=== PATIENT | female | born 1940 | race Caucasian/White ===

== ENCOUNTER 2016-03-16 14:24 | Emergency (ER) | payer MEDICARE ==
[2016-03-16 15:03] LABS: #Basophils 0.1 thou/uL (0.0-0.2); #Eosinphils 0.2 thou/uL (0.0-0.7); #Lymphocytes 1.7 thou/uL (1.20-3.40); #Monocytes 0.6 thou/uL (0.11-0.59); #Neutrophils 6.2 thou/uL (1.40-6.50); %Basophils 1.1 % (0.0-1.0); %Eosinophils 2.4 % (0.0-10.0); %Monocytes 6.8 % (0.0-10.0); Mean Platelet Volume 6.5 fL (7.4-10.4); White Blood Cell (WBC) Count 8.8 thou/uL (4.8-10.8)
[2016-03-16 15:19] LABS: ALT (SGPT) 11 U/L (0-55); AST (SGOT) 14 U/L (5-34); Alkaline Phosphatase 72 U/L (40-150); Anion Gap 13 mmol/L (10-20); BUN (Urea Nitrogen) 14 mg/dL (9.8-20.1); Bilirubin, Total 0.5 mg/dL (0.2-1.2); Calc. Creatinine Clearance 0 mL/min (70-130); Calcium 9.2 mg/dL (7.8-10.44); Carbon Dioxide 25 mmol/L (23-31); Chloride 108 mmol/L (98-107); Estimated GFR-MDRD 79; Protein, Total 6.8 g/dL (5.8-8.1)
[2016-03-16 15:26] LABS: Troponin I Less than 0.010 ng/mL (< 0.028)
[2016-03-16] MEDS ORDERED: Piperacillin/Tazobactam 3.375 GM VIAL ONE (16:48)
[2016-03-16] MEDS ORDERED: Enoxaparin Sodium 100 MG/ML SYRINGE ONE (16:48)
[2016-03-16] MEDS ORDERED: Sodium Chloride 0.9% 100 ML ONE (16:48)
--- NOTE | 2016-03-16 16:49 | RAD ---
CHEST TWO VIEWS 03/16/16 Comparison is made with the prior study dated 07/15/14. The heart size is unchanged and is within normal limits. There are no real congestive findings at th e moment. The right hilum is a little larger than it was before but this is probably positional. I d o not see any large lobar consolidations. There might be a little coarsening of the lung markings in the right base. Otherwise, the lungs are clear. There are no large effusions. IMPRESSION: Question of slight coarsening of right basilar markings which may or may not be significant. Exam ot herwise unremarkable. POS: HOME
[2016-03-16 17:28] LABS: Lactic Acid - Sepsis 1.3 mmol/L (0.5-2.2)
--- NOTE | 2016-03-16 17:47 | ERRECORD ---
[facility] EMERGENCY RECORD HPI SHORTNESS OF BREATH (15:32 DHAM) CHIEF COMPLAINT: Patient presents for evaluation of shortness of breath. HISTORIAN: History provided by patient. LOCATION: Unable to localize symptoms. QUALITY: "like I can't get a deep breath". SEVERITY: Current severity of pain rated as 0/10. TIME COURSE: Gradual onset of symptoms, 7, days priror to arrival, There has been no change in the patient's symptoms over time, worse at night when she lays down, are intermittent. ASSOCIATED WITH: Associated with chills, for 3 days, currently resolved, No associated cough, No associated chest pain, No associated diaphoresis, Associated with dyspnea on exertion, for 7 days, intermittent, Associated with fever, subjective, currently resolved, No associated hyperventilation, No associated increased inhaler use, No associated nausea, No associated palpitations, No associated paroxysmal nocturnal dyspnea, No associated peripheral edema, No associated pleuritic chest pain, No associated upper respiratory infection, No associated vomiting, No associated wheezing, denies uri symptoms but says she always has nasal congestion and runny nose. EXACERBATED BY: Patient's condition exacerbated by deep breaths, Patient's condition exacerbated by exercise, Patient's condition exacerbated by lying flat. RELIEVED BY: Patient's condition relieved by nothing, Patient's condition relieved by tried albuterol mdi "but I think it's empty.". RISK FACTORS: Coronary artery disease risk factors, include known coronary artery disease, include diabetes, include high cholesterol, include hypertension, Thoracic aortic dissection risk factors, include hypertension, Pulmonary embolism risk factors, not applicable to this patient. ROS (15:37 DHAM) CONSTITUTIONAL: Historian reports chills, denies fatigue, reports fever. Subjective fever of "3 days ago maybe", Historian denies night sweats. EYES: Historian denies eye pain, denies eye redness, denies eye discharge, denies itching, denies photophobia, denies tearing. ENT: Historian reports rhinorrhea, reports sore throat. for a long time. CARDIOVASCULAR: Historian denies chest pain, no radiation, Historian denies diaphoresis, reports dyspnea on exertion, denies edema, reports exercise intolerance. no jugular venous distention, Historian reports orthopnea, denies paroxysmal nocturnal dyspnea, denies syncope, denies palpitations. RESPIRATORY: Historian denies cough, reports shortness of breath, denies sputum, denies stridor, denies wheezing. GI: Historian denies abdominal pain, reports diarrhea, &a-1R&a+25V*p+0X*c1481W*c202B*c15G*c2P*p-0X&a-25V&a+1R Name: Marlene Lim : 1940 F75 MedRec: [id number] AcctNum: [id number] Prepared: Chio Mar 17, 2016 01:22 by Interface Page 1 of 5 pMD [facility] EMERGENCY RECORD denies nausea, denies vomiting. GENITOURINARY FEMALE: Historian denies dysuria, denies frequency, denies urgency. MUSCULOSKELETAL: Historian denies arthralgias, denies back pain, denies fall, denies injury. SKIN: Historian denies rash, denies skin changes. NEUROLOGIC: Historian denies confusion, denies dizziness, denies headache, denies mental status changes, denies paresthesias. ENDOCRINE: hypothyroid. HEMO/LYMPHATIC: Historian denies abnormal blood clotting, denies anemia, denies easy bruising. takes plavix. ALLERGIC/IMMUNOLOGIC: Historian denies frequent infections, denies hives. PSYCHIATRIC: Negative psychiatric review of systems. PAST MEDICAL HISTORY MEDICAL HISTORY: Notes: COPD, HI, HTN, "thyroid issue". (14:33 LGIB) FEMALE SURGICAL HISTORY: right lung, CABG X 4 vessels. (14:33 LGIB) PSYCHIATRIC HISTORY: No previous psychiatric history. (14:33 LGIB) SOCIAL HISTORY: Patient denies alcohol use, Patient denies drug use, Patient is a former tobacco user, smoked cigarettes, Patient quit smoking more than 10 years ago, Tobacco history notes: quit 20 years ago. (14:33 LGIB) NOTES: right lung had recurrent pneumothorax and she had blebs removed. (16:18 DHAM) KNOWN ALLERGIES No Known Drug Allergies CURRENT MEDICATIONS valsartan: TABLET : Strength - 80 mg : ORAL Patient Dose: 1 tab(s) Oral once a day. (15:48 LGIB) meTOPROLOL succinate: TABLET, EXTENDED RELEASE 24 HR : Strength - 25 mg : ORAL Patient Dose: 1 tab(s) Oral once a day. (15:50 LGIB) Plavix: TABLET : Strength - 75 mg : ORAL Patient Dose: 1 tab(s) Oral once a day. (15:50 LGIB) sertraline: TABLET : Strength - 50 mg : ORAL Patient Dose: 1 tab(s) Oral once a day. (15:50 LGIB) levothyroxine: TABLET : Strength - 25 mcg : ORAL Patient Dose: 1 tab(s) Oral once a day. (15:51 LGIB) VITAL SIGNS &a-1R&a+25V*p+0X*i2409T*c202B*c15G*c2P*p-0X&a-25V&a+1R Name: Marlene Lim : 1940 F75 MedRec: [id number] AcctNum: [id number] Prepared: Chio Mar 17, 2016 01:22 by Interface Page 2 of 5 pMD [facility] EMERGENCY RECORD VITAL SIGNS: BP: 156/81, Pulse: 73, Resp: 20 (Non-Labored), O2 sat: 95 on Room Air, Time: 03/16/2016 14:33. (14:33 LGIB) Temp: 98.2 (Oral), Pain: 0, Time: 03/16/2016 14:41. (14:41 LGIB) BP: 166/74, Pulse: 63, Resp: 20, Pain: 0, O2 sat: 95 on Room Air, Time: 03/16/2016 15:00. (15:00 LSMI) BP: 139/91, Pulse: 61, Resp: 18, Pain: 0, O2 sat: 99 on Room Air, Time: 03/16/2016 15:30. (15:30 LSMI) PHYSICAL EXAM (16:15 DHAM) CONSTITUTIONAL: Vital Signs Reviewed, Patient afebrile, Pulse normal, Blood pressure normal, Respiratory rate normal, Normal pulse oximetry, Patient appears non toxic, Patient appears pain free, Patient alert and oriented to person, place and time, Nursing notes reviewed. HEAD: Head exam included findings of head atraumatic, normocephalic. EYES: Eye exam included findings of eyelids normal to inspection, Pupils equally round and reactive to light, Extraocular muscles intact, Conjunctiva normal, Sclera normal, Eye exam included findings of anterior chamber clear. ENT: Ear exam normal, external ear normal, tympanic membranes normal, no foreign body, no drainage, no bleeding, hearing normal, Nose exam normal, no nasal deformity, no bleeding from nares, no bleeding from hypopharynx, no foreign body visualized, no septal hematoma, no septal necrosis, No turbinate mucosa discharge, Pharynx exam normal, not injected, no swelling, symmetrical, Uvula exam normal, midline, no edema, Tonsil exam normal, not enlarged, no exudates, Mouth exam normal, mucous membranes moist, no drooling, no lesions, no lacerations, no tongue elevation, teeth normal. NECK: Neck exam included findings of normal range of motion, Trachea midline, Thyroid normal, no meningeal signs, no jugular venous distention, no cervical adenopathy, no tenderness, no contusions, no ecchymosis, No HJR. RESPIRATORY CHEST: Respiratory exam included findings of no respiratory distress, Breath sounds with rare crackles in bilat bases but marked crackles over right middle lobe, No rhonchi, Breath sounds mildly diffusely diminished, Chest exam included findings of chest movement symmetrical. CARDIOVASCULAR: Cardiovascular exam included findings of heart rate regular rate and rhythm, Heart sounds with normal s1 and s2 but occasionally has a midsystolic click., she has a 2-3/6 late systolic Murmur best heard in the aortic area. I do not hear this in the mitral area. ABDOMEN FEMALE: Abdominal exam included findings of abdomen nontender, Bowel sounds normal, Liver normal, Spleen normal, no distension, no pulsatile masses, no peritoneal signs, no ventral hernia. BACK: Back exam normal. UPPER EXTREMITY: Upper extremity exam normal, Upper extremity exam included findings of inspection normal, no abrasions, no &a-1R&a+25V*p+0X*t6129P*c202B*c15G*c2P*p-0X&a-25V&a+1R Name: Marlene Lim : 1940 F75 MedRec: [id number] AcctNum: [id number] Prepared: Chio Mar 17, 2016 01:22 by Interface Page 3 of 5 pMD [facility] EMERGENCY RECORD contusions, no deformity, no lacerations, Range of motion normal, Motor strength normal, Sensation intact, Brachial pulse normal, Radial pulse normal. LOWER EXTREMITY: Lower extremity exam normal, Lower extremity exam included findings of inspection normal, no abrasions, no contusions, no deformity, no lacerations, Range of motion normal, Motor strength normal, Sensation intact, Pedal pulse normal, Lupe's negative, no edema, no calf tenderness. NEURO: Neuro exam findings include patient oriented to person, place and time, Speech normal, Gait normal, [place] coma scale 15, Memory normal, Cranial nerves intact, Deep tendon reflexes normal, no focal motor deficits, no focal sensory deficits. SKIN: Skin exam included findings of skin warm, dry, and normal in color, no rash. LYMPHATIC: Lymphatic exam normal, Lymphatic exam included findings of cervical nodes normal. PSYCHIATRIC: Psychiatric exam included findings of patient oriented to person place and time, Normal affect, Judgment normal, Insight normal, Remote memory normal, Recent memory normal, Concentration normal, No suicidal ideations, No homicidal ideations. EKG INTERPRETATION (15:06 DHAM) 12 LEAD EKG INTERPRETATION: 12 lead EKG interpreted by Emergency Department Physician at time of study, 12 lead EKG shows normal sinus rhythm, Rate (beats per minute): 62, with no ectopics, Interpretation: normal EKG, Conduction normal, ST segments normal, T waves normal, [place] normal, Clinical impression: Normal EKG. RADIOLOGYINTERPRETATION (15:08 DHAM) CHEST: Films of the chest show, lobar infiltrate, patchy infiltrate, to the right lower lobe, no pneumothorax, no hemothorax, no pleural effusion, no atelectasis, no cardiomegaly, no chronic obstructive pulmonary disease, normal mediastinum, no congestive heart failure. MEDICATION ADMINISTRATION SUMMARY Drug Name: Zosyn, Dose Ordered: 3.375 g, Route: IV Piggy Back, Status: Given, Time: 17:04 03/16/2016, Drug Name: Lovenox, Dose Ordered: 70 mg, Route: Subcutaneous, Status: Given, Time: 16:57 03/16/2016, Drug Name: DuoNeb, Dose Ordered: 3 mL, Route: Nebulize, Status: Given, Time: 15:44 03/16/2016, Detailed record available in Medication Service section. DOCTOR NOTES TEXT: Pt had no improvement with her shortness of breath with the Duoneb. (16:55 DHAM) IV has infiltrated with the contrast in the right anticubital fossa. I have discussed the ct chest with Dr. Castle who agrees that &a-1R&a+25V*p+0X*p0144I*c202B*c15G*c2P*p-0X&a-25V&a+1R Name: Marlene Lim : 1940 F75 MedRec: [id number] AcctNum: [id number] Prepared: MonMar 17, 2016 01:22 by Interface Page 4 of 5 pMD [facility] EMERGENCY RECORD she has infiltrate in the right base that is either an early pneumonia or atelectasis. Dr. Castle states that we should not repeat the contrasted ct chest at this time and maybe a VQ would be more reasonable. With pt's CAD, COPD, cxr findings, heart murmur, elevated BNP and d dimer, I will start some IVABX and Lovenox and transfer her to [facility]. I have drawn BC and lactic acid and started zosyn. I have discussed this with the pt and her good friend in detail and answered questions. They are in agreement. (16:46 DHAM) Pt discussed with Dr. Allen at 1710 at [facility] who accepts the pt in transfer via EMS. Pt appears stable for transfer. (17:07 DHAM) PROBLEM LIST No recorded problems DIAGNOSIS (16:54 DHAM) FINAL: PRIMARY: right lower lobe pneumonia, ADDITIONAL: elevated bnp, elevated d dimer, systolic heart murmur. PRESCRIPTION No recorded prescriptions DISPOSITION PATIENT: Disposition Type: Transfer, Disposition: Transfer to [facility]. (16:54 DHAM) Patient left the department. (17:26 LGIB) Benjamin: PARVIN=MD Cheryl, Jules LGIB=NORMAN Rebolledo, Vidhi LSMI=MIGUEL Borrero Leah &a-1R&a+25V*p+0X*w5717K*c202B*c15G*c2P*p-0X&a-25V&a+1R Name: Marlene Lim : 1940 F75 MedRec: [id number] AcctNum: [id number] Prepared: Chio Mar 17, 2016 01:22 by Interface Page 5 of 5 pMD MTDD
--- NOTE | 2016-03-16 17:52 | CT ---
CT ANGIO OF THE CHEST 03/16/16 Comparison is made with a 11/26/08 study. The patient was given a bolus of IV contrast. The technologist did not see any contrast on the image and actually scanned her twice quickly. In no case is contrast seen within the vascular system. Aft erwards it was found that the IV had infiltrated into the arm. Thus, I cannot comment on the presenc e or absence of pulmonary embolism. There is severe coronary arteriosclerosis. There is no mediastinal mass, adenopathy or pericardial e ffusion. A small hiatal hernia was noted. The lungs show COPD with some basilar bronchiectasis. There are areas of atelectasis and scarring. T here is a slight increase in markings in the right lower lobe which could be either atelectasis or a very early infiltrate. Some small peripheral bulla are seen in the lungs which were present previou sly. A small hiatal hernia was noted. Scans to the upper abdomen showed no gross acute findings. The last slice or two suggested a vague low density area in the anterior part of the medial right lobe of the liver. When one looks back on the 2008 study, it was present and is certainly no larger today . It may be a hemangioma. IMPRESSION: 1. IV infiltrated, so pulmonary embolism could not be ruled in or out. 2. Coronary arteriosclerosis, severe. 3. COPD with scattered areas of scarring and atelectasis. There is also bronchiectasis in the l ower lobes. 4. Slight increase in right basilar markings. Atelectasis versus early infiltrate. 5. Small hiatal hernia. POS: HOME
--- NOTE | 2016-03-16 17:54 | PICIS ---
[facility] EMERGENCY RECORD TRIAGE (14:32 LGIB) TRIAGE NOTES: PT WITH SOB FOR 1 WEEK, HX OF COPD. DENIES COUGH, DENIES FEVER. NAD, RR EVEN AND UNLABORED. (14:32 LGIB) PATIENT: NAME: Marlene Lim, AGE: 75, GENDER: female, : Sun 1940, TIME OF GREET: MonMar 16, 2016 14:25, PREFERRED LANGUAGE: Polish, ETHNICITY: Not or , ECODE BILLING MAP: [facility], SSN: [id number], Zip Code: [address], KG WEIGHT: 72.57, PHONE: , , , PERSON ID: [id number], PAYMENT: [employer], PCP: MD Odonnell Jacques. (14:32 LGIB) COMPLAINT: SOB. (14:32 LGIB) ADMISSION: URGENCY: 3 Urgent, ADMISSION SOURCE: Home, TRANSPORT: CAR, BED: ER -01. (14:32 LGIB) SIRS SCORING: Heart Rate 55-109 (0), Temp range 96.8-101.1 (0), respiratory rate 12-24 (0), Mental Status altered: no (0), Total SIRS Score 0. (14:33 LGIB) PROVIDERS: TRIAGE NURSE: Vidhi Rebolledo RN. (14:32 LGIB) PREVIOUS VISIT ALLERGIES: NKDA. (14:32 LGIB) NKDA. (14:33 LGIB) KNOWN ALLERGIES No Known Drug Allergies CURRENT MEDICATIONS valsartan: TABLET : Strength - 80 mg : ORAL Patient Dose: 1 tab(s) Oral once a day. (15:48 LGIB) meTOPROLOL succinate: TABLET, EXTENDED RELEASE 24 HR : Strength - 25 mg : ORAL Patient Dose: 1 tab(s) Oral once a day. (15:50 LGIB) Plavix: TABLET : Strength - 75 mg : ORAL Patient Dose: 1 tab(s) Oral once a day. (15:50 LGIB) sertraline: TABLET : Strength - 50 mg : ORAL Patient Dose: 1 tab(s) Oral once a day. (15:50 LGIB) levothyroxine: TABLET : Strength - 25 mcg : ORAL Patient Dose: 1 tab(s) Oral once a day. (15:51 LGIB) VITAL SIGNS VITAL SIGNS: BP: 156/81, Pulse: 73, Resp: 20 (Non-Labored), O2 sat: 95 on Room Air, Time: 03/16/2016 14:33. (14:33 LGIB) Temp: 98.2 (Oral), Pain: 0, Time: 03/16/2016 14:41. (14:41 LGIB) BP: 166/74, Pulse: 63, Resp: 20, Pain: 0, O2 sat: 95 on Room Air, Time: 03/16/2016 15:00. (15:00 LSMI) BP: 139/91, Pulse: 61, Resp: 18, Pain: 0, O2 sat: 99 on Room Air, Time: 03/16/2016 15:30. (15:30 LSMI) NURSING ASSESSMENT: FALL RISK (17:06 LGIB) &a-1R&a+25V*p+0X*x5824P*c202B*c15G*c2P*p-0X&a-25V&a+1R Name: Marlene Lim : 1940 F75 MedRec: [id number] AcctNum: [id number] Prepared: [place] Mar 17, 2016 01:22 by Interface Page 1 of 13 D [facility] EMERGENCY RECORD FALL RISK: Fall risk assessment findings include: no history of falls (0), No bed rest greater than 2 days (0), No use of level of consciousness altering agents with mentation or cognitive changes (0), No change in blood pressure (0), No sensory deficits (0), No impaired mobility (0), No neurologic diagnosis (0), No elimination problems (0), No confusion (0), Total score 0. NURSING ASSESSMENT: RESPIRATORY /CHEST (14:45 LGIB) CONSTITUTIONAL: Complex assessment performed, Patient arrives ambulatory, Gait steady, History obtained from patient, Patient appears comfortable, Patient cooperative, Patient alert, Oriented to person, place and time, Skin warm, Skin dry, Skin normal in color, Mucous membranes pink, Mucous membranes moist, Patient is well-groomed, Patient complains of SOB, HX OF COPD, PT STATES THAT FOR THE LAST WEEK SHE HAS BEEN FEELING MORE SHORT OF BREATH, ESPECIALLY WHEN SHE LIES FLAT AT NIGHT OR IS AMBULATORY FOR A PROLONGED TIME. PAIN: Patient rates pain as 0 out of 10. RESPIRATORY/CHEST: Breath sounds clear, Respiratory assessment findings include respiratory effort easy, Respirations regular, Conversing normally, Neck and chest exam findings include trachea midline, Chest expansion equal, Chest movement symmetrical, no signs of distress, no retractions noted, no cyanosis, no associated cough noted, no associated fever. SAFETY: Side rails up, Cart/Stretcher in lowest position, Family at bedside, Call light within reach, Hospital ID band on. NURSING PROCEDURE: TRIALS MANAGER (14:35 LGIB) TRIALS MANAGER: Patient placed on [employer], Patient placed on non-invasive blood pressure monitor, Patient placed on continuous pulse oximetry. NURSING PROCEDURE: COMMUNICATIONS (17:02 LSMI) COMMUNICATIONS: Notes: [facility] notified of need for transfer 1702 dr Allen accepts 1706 ad approval carlyle nixon 1706 ems called for transport 1706 ems arrived in [place] 1718 pt left [place] [facility] [place] [facility]. NURSING PROCEDURE: EKG CHART (14:49 LSMI) PATIENT IDENTIFIER: Patient actively involved in identification process, Patient's identity verified by patient stating name, Patient's identity verified by patient stating date, Patient's identity verified by hospital ID bracelet, Patient's identity verified by family member. EKG: EKG indicated for sob, 12 lead EKG performed on the left chest, done by cilff flores lvn, first EKG. FOLLOW-UP: After procedure, EKG for interpretation given to &a-1R&a+25V*p+0X*r6104Q*c202B*c15G*c2P*p-0X&a-25V&a+1R Name: Marlene Lim : 1940 F75 MedRec: [id number] AcctNum: [id number] Prepared: MonMar 17, 2016 01:22 by Interface Page 2 of 13 D [facility] EMERGENCY RECORD cheryl. SAFETY: Physician notified of above findings. NURSING PROCEDURE: IV PATIENT IDENITIFIER: Patient actively involved in identification process, Patient's identity verified by patient stating name, Patient's identity verified by patient stating date, Patient's identity verified by hospital ID bracelet, Patient's identity verified by family member. (16:56 LSMI) IV SITE 1: IV therapy indicated for CT SCAN, IV established, to the right antecubital, using a 20 gauge catheter, in one attempt, Saline lock established, Flushed with normal saline (mls): 10. (16:04 LGIB) IV therapy indicated for hydration, IV therapy indicated for medication administration, IV established, to the left forearm, using a 20 gauge catheter, in one attempt, Saline lock established, Flushed with normal saline (mls): 10, Labs drawn at time of placement, labeled in the presence of the patient and sent to lab, Blood cultures drawn at time of placement, labeled in the presence of the patient and sent to lab. (16:56 LSMI) FOLLOW-UP SITE 1: IV discontinued, due to patient being discharged, catheter intact, After removal, sterile dressing applied to IV site. (16:25 LSMI) NOTES: Notes: FIRST IV DISCONTINUED DUE TO INFILTRATION. 2X2 WITH TAPE APPLIED. (17:06 LGIB) NURSING PROCEDURE: NURSE NOTES (16:30 LGIB) NURSES NOTES: Notes: PER TERENCE, CT DOES NOT SHOW THAT THERE WAS CONTRAST. PATIENT'S LEFT ARM IS SWOLLEN ON RETURN FROM CT. WARM COMPRESSES PLACED TO ARM AND ARM ELEVATED TO REDUCE SWELLING. NURSING PROCEDURE: OXYGEN THERAPY (17:15 LGIB) OXYGEN THERAPY: Oxygen therapy indicated for desaturation, 2L oxygen given, via nasal cannula applied, Applied by NORMAN STEVENS. NURSING PROCEDURE: RESPIRATORY INTERVENTIONS (15:40 LSMI) PATIENT IDENTIFIER: Patient actively involved in identification process, Patient's identity verified by patient stating name, Patient's identity verified by patient stating date, Patient's identity verified by hospital ID bracelet, Patient's identity verified by family member. RESPIRATORY INTERVENTIONS: Pre-intervention breath sounds with rales, to the right middle lobe, to the left lower lobe, to the right lower lobe, Patient given ALBUTEROL with ATROVENT, Single dose nebulizer. NURSING PROCEDURE: TRANSFER TRANSFER: Diagnosis: rll pneumonia elevated d dimer, Accepting institution: [facility], Accepting physician: yovany, Referring physician: cheryl, Transported by urgent ambulance, accompanied by &a-1R&a+25V*p+0X*i3884K*c202B*c15G*c2P*p-0X&a-25V&a+1R Name: Marlene Lim : 1940 F75 MedRec: [id number] AcctNum: [id number] Prepared: [facility] Mar 17, 2016 01:22 by Interface Page 3 of 13 pMD [facility] EMERGENCY RECORD emergency medical services personnel, Summary of Care printed. (17:24 LSMI) Report called to receiving facility, NORMAN Rock, Provided opportunity to answer questions. (17:29 LGIB) EQUIPMENT WITH PATIENT: Equipment with patient at time of transfer [employer], Equipment with patient at time of transfer IV pump, Notes: o2 in place on transfer. (17:24 LSMI) NURSING PROCEDURE: TRANSPORT TO TESTS TRANSPORT TO TESTS: Transport indicated to facilitate diagnosis, Patient transported to x-ray, via wheelchair, Accompanied by x-ray aerial survey technician. (15:00 LGIB) Transport indicated to facilitate diagnosis, Patient transported to CT scan, via cart, Accompanied by x-ray aerial survey technician. (16:11 LGIB) FOLLOW-UP: After procedure, patient returned to emergency department. (15:06 LGIB) ORDER DETAILS Order Name: B type Natriuretic Peptide, Status: Active, Time: 14:42 03/16/2016, User: PARVIN, - Ordered for: MD Luna Darren, - Entered by: MD Luna Darren - MonMar 16, 2016 14:42, - Quantity: 1, Order Name: TRIALS MANAGER ED, Status: Done, Time: 14:44 03/16/2016, User: DELTA, - Ordered for: MD Luna Darren, - Entered by: MD Luna Darren - MonMar 16, 2016 14:42, - Quantity: 1, Order Name: Cardiac Profile w/CKMB & Troponin - I, Status: Active, Time: 14:42 03/16/2016, User: PARVIN, - Ordered for: MD Luna Darren, - Entered by: MD Luna Darren - MonMar 16, 2016 14:42, - Quantity: 1, Order Name: CBC with Differential, Status: Active, Time: 14:42 03/16/2016, User: PARVIN, - Ordered for: MD Luna Darren, - Entered by: MD Luna Darren - MonMar 16, 2016 14:42, - Quantity: 1, Order Name: Comprehensive Metabolic Panel, Status: Active, Time: 14:42 03/16/2016, User: PARVIN, - Ordered for: MD Luna Darren, - Entered by: MD Luna Darren - MonMar 16, 2016 14:42, - Quantity: 1, Order Name: CTA Angio Chest W WO Con(PE Protocol), Status: Active, Time: 15:42 03/16/2016, User: PARVIN, - Ordered for: MD Luna Darren, - Entered by: MD Luna Darren - MonMar 16, 2016 15:42, - Quantity: 1, Order Name: Culture, Blood, Status: Active, Time: 16:44 03/16/2016, &a-1R&a+25V*p+0X*g4164O*c202B*c15G*c2P*p-0X&a-25V&a+1R Name: Marlene Lim : 1940 F75 MedRec: [id number] AcctNum: [id number] Prepared: MonMar 17, 2016 01:22 by Interface Page 4 of 13 D [facility] EMERGENCY RECORD User: PARVIN, - Ordered for: MD Luna Darren, - Entered by: MD Luna Darren - MonMar 16, 2016 16:44, - Quantity: 1, Order Name: D-Dimer (Quantitative), Status: Active, Time: 14:42 03/16/2016, User: PARVIN, - Ordered for: MD Luna Darren, - Entered by: MD Luna Darren - MonMar 16, 2016 14:42, - Quantity: 1, Order Name: EKG 12 Lead in Emergency Room, Status: Active, Time: 14:42 03/16/2016, User: PARVIN, - Ordered for: MD Luna Darren, - Entered by: MD Luna Darren - MonMar 16, 2016 14:42, - Quantity: 1, Order Name: ERRT * Smal Vol Neb Initial Trmt, Status: Active, Time: 15:40 03/16/2016, User: PARVIN, - Ordered for: MD Luna Darren, - Entered by: MD Luna Darren - Wed Mar 16, 2016 15:40, - Quantity: 1, Order Name: ERRT Pulse Oximeter ER, Status: Active, Time: 14:42 03/16/2016, User: PARVIN, - Ordered for: MD Luna Darren, - Entered by: MD Luna Darren - Wed Mar 16, 2016 14:42, - Quantity: 1, Order Name: Lactic Acid with repeat, Status: Active, Time: 16:45 03/16/2016, User: PARVIN, - Ordered for: MD Luna Darren, - Entered by: MD Luna Darren - Wed Mar 16, 2016 16:45, - Quantity: 1, Order Name: SALINE LOCK, Status: Done, Time: 16:57 03/16/2016, User: DELTA, - Ordered for: MD Luna Darren, - Entered by: MD Luna Darren - Theo Mar 16, 2016 16:45, - Quantity: 1, Order Name: Urinalysis w/ Rflx Microscopic, Status: Active, Time: 14:42 03/16/2016, User: PARVIN, - Ordered for: MD Luna Darren, - Entered by: MD Luna Darren - Wed Mar 16, 2016 14:42, - Quantity: 1, Order Name: XR Chest Pa & Lat STANDARD, Status: Active, Time: 14:42 03/16/2016, User: PARVIN, - Ordered for: MD Luna Darren, - Entered by: MD Luna Darren - [facility] Mar 16, 2016 14:42, - Quantity: 1. MEDICATION ADMINISTRATION SUMMARY Drug Name: Zosyn, Dose Ordered: 3.375 g, Route: IV Piggy Back, Status: Given, Time: 17:04 03/16/2016, Drug Name: Lovenox, Dose Ordered: 70 mg, Route: Subcutaneous, Status: &a-1R&a+25V*p+0X*t0623P*c202B*c15G*c2P*p-0X&a-25V&a+1R Name: Marlene Lim : 1940 F75 MedRec: [id number] AcctNum: [id number] Prepared: [facility] Mar 17, 2016 01:22 by Interface Page 5 of 13 pMD [facility] EMERGENCY RECORD Given, Time: 16:57 03/16/2016, Drug Name: DuoNeb, Dose Ordered: 3 mL, Route: Nebulize, Status: Given, Time: 15:44 03/16/2016, Detailed record available in Medication Service section. MEDICATION SERVICE DuoNeb: Order: DuoNeb (ipratropium bromide/albuterol sulfate) - Dose: 3 mL : Nebulize Schedule: Now Ordered by: Jules Luna MD Entered by: Jules Luna MD MonMar 16, 2016 15:39 Documented as given by: Henna Flores LVN MonMar 16, 2016 15:44 Patient, Medication, Dose, Route and Time verified prior to administration. Site: Medication administered via Hand-held nebulizer, Correct patient, time, route, dose and medication confirmed prior to administration, Patient advised of actions and side-effects prior to administration, Allergies confirmed and medications reviewed prior to administration, Patient in position of comfort, Side rails up, Cart in lowest position, Family at bedside, Call light in reach. Lovenox: Order: Lovenox (enoxaparin sodium) - Dose: 70 mg : Subcutaneous Schedule: Now Ordered by: Jules Luna MD Entered by: Jules Luna MD MonMar 16, 2016 16:46 , Acknowledged by: Vidhi Rebolledo RN MonMar 16, 2016 16:47 Documented as given by: Vidhi Rebolledo RN MonMar 16, 2016 16:57 Patient, Medication, Dose, Route and Time verified prior to administration. Medication administered to left abdomen, Correct patient, time, route, dose and medication confirmed prior to administration, Patient advised of actions and side-effects prior to administration, Allergies confirmed and medications reviewed prior to administration, Advised not to ambulate without assistance, Patient in position of comfort, Side rails up, Cart in lowest position, Family at bedside. Zosyn: Order: Zosyn (piperacillin sodium/tazobactam sodium) - Dose: 3.375 g : IV Piggy Back Schedule: Now Ordered by: Jules Luna MD Entered by: Jules Luna MD MonMar 16, 2016 16:35 , Acknowledged by: Vidhi Rebolledo RN MonMar 16, 2016 16:47 Documented as given by: Vidhi Rebolledo RN MonMar 16, 2016 17:04 Patient, Medication, Dose, Route and Time verified prior to administration. IV SITE #1 IVPB or drip, initial infusion, IVPB mixed in: 100ml, Fluid: 0.9NS, via primary tubing, on an IV pump, at 200 ml/hr, Verified Blood Culture collection prior to Antibiotic administration, Connections checked prior to administration, Line traced prior to administration, Catheter placement confirmed via flush prior to administration, IV site without signs or symptoms of infiltration &a-1R&a+25V*p+0X*g9162B*c202B*c15G*c2P*p-0X&a-25V&a+1R Name: Marlene Lim : 1940 F75 MedRec: [id number] AcctNum: [id number] Prepared: MonMar 17, 2016 01:22 by Interface Page 6 of 13 pMD [facility] EMERGENCY RECORD during medication administration, No swelling during administration, No drainage during administration, IV flushed after administration, Correct patient, time, route, dose and medication confirmed prior to administration, Patient advised of actions and side-effects prior to administration, Allergies confirmed and medications reviewed prior to administration, Patient in position of comfort, Side rails up, Cart in lowest position, Family at bedside. : Follow Up : Response assessment performed, No signs or symptoms of allergic reaction noted, _IV SITE #1:_, Medication infusion continued upon transfer from emergency department, on MonMar 16, 2016 17:23, 20 minutes, ., Total amount infused: 75ML. (17:22 LGIB) HPI SHORTNESS OF BREATH (15:32 DHAM) CHIEF COMPLAINT: Patient presents for evaluation of shortness of breath. HISTORIAN: History provided by patient. LOCATION: Unable to localize symptoms. QUALITY: "like I can't get a deep breath". SEVERITY: Current severity of pain rated as 0/10. TIME COURSE: Gradual onset of symptoms, 7, days priror to arrival, There has been no change in the patient's symptoms over time, worse at night when she lays down, are intermittent. ASSOCIATED WITH: Associated with chills, for 3 days, currently resolved, No associated cough, No associated chest pain, No associated diaphoresis, Associated with dyspnea on exertion, for 7 days, intermittent, Associated with fever, subjective, currently resolved, No associated hyperventilation, No associated increased inhaler use, No associated nausea, No associated palpitations, No associated paroxysmal nocturnal dyspnea, No associated peripheral edema, No associated pleuritic chest pain, No associated upper respiratory infection, No associated vomiting, No associated wheezing, denies uri symptoms but says she always has nasal congestion and runny nose. EXACERBATED BY: Patient's condition exacerbated by deep breaths, Patient's condition exacerbated by exercise, Patient's condition exacerbated by lying flat. RELIEVED BY: Patient's condition relieved by nothing, Patient's condition relieved by tried albuterol mdi "but I think it's empty.". RISK FACTORS: Coronary artery disease risk factors, include known coronary artery disease, include diabetes, include high cholesterol, include hypertension, Thoracic aortic dissection risk factors, include hypertension, Pulmonary embolism risk factors, not applicable to this patient. ROS (15:37 [facility]) CONSTITUTIONAL: Historian reports chills, denies fatigue, reports fever. Subjective fever of "3 days ago &a-1R&a+25V*p+0X*y7451L*c202B*c15G*c2P*p-0X&a-25V&a+1R Name: Marlene Lim : 1940 F75 MedRec: [id number] AcctNum: [id number] Prepared: MonMar 17, 2016 01:22 by Interface Page 7 of 13 pMD [facility] EMERGENCY RECORD maybe", Historian denies night sweats. EYES: Historian denies eye pain, denies eye redness, denies eye discharge, denies itching, denies photophobia, denies tearing. ENT: Historian reports rhinorrhea, reports sore throat. for a long time. CARDIOVASCULAR: Historian denies chest pain, no radiation, Historian denies diaphoresis, reports dyspnea on exertion, denies edema, reports exercise intolerance. no jugular venous distention, Historian reports orthopnea, denies paroxysmal nocturnal dyspnea, denies syncope, denies palpitations. RESPIRATORY: Historian denies cough, reports shortness of breath, denies sputum, denies stridor, denies wheezing. GI: Historian denies abdominal pain, reports diarrhea, denies nausea, denies vomiting. GENITOURINARY FEMALE: Historian denies dysuria, denies frequency, denies urgency. MUSCULOSKELETAL: Historian denies arthralgias, denies back pain, denies fall, denies injury. SKIN: Historian denies rash, denies skin changes. NEUROLOGIC: Historian denies confusion, denies dizziness, denies headache, denies mental status changes, denies paresthesias. ENDOCRINE: hypothyroid. HEMO/LYMPHATIC: Historian denies abnormal blood clotting, denies anemia, denies easy bruising. takes plavix. ALLERGIC/IMMUNOLOGIC: Historian denies frequent infections, denies hives. PSYCHIATRIC: Negative psychiatric review of systems. PAST MEDICAL HISTORY MEDICAL HISTORY: Notes: COPD, NV, HTN, "thyroid issue". (14:33 LGIB) FEMALE SURGICAL HISTORY: right lung, CABG X 4 vessels. (14:33 LGIB) PSYCHIATRIC HISTORY: No previous psychiatric history. (14:33 LGIB) SOCIAL HISTORY: Patient denies alcohol use, Patient denies drug use, Patient is a former tobacco user, smoked cigarettes, Patient quit smoking more than 10 years ago, Tobacco history notes: quit 20 years ago. (14:33 LGIB) NOTES: right lung had recurrent pneumothorax and she had blebs removed. (16:18 DHAM) PHYSICAL EXAM (16:15 DHAM) CONSTITUTIONAL: Vital Signs Reviewed, Patient afebrile, Pulse normal, Blood pressure normal, Respiratory rate normal, Normal pulse oximetry, Patient appears non toxic, Patient appears pain free, Patient alert and oriented to person, place and time, Nursing notes reviewed. HEAD: Head exam included findings of head atraumatic, normocephalic. &a-1R&a+25V*p+0X*q5020O*c202B*c15G*c2P*p-0X&a-25V&a+1R Name: Marlene Lim : 1940 F75 MedRec: [id number] AcctNum: [id number] Prepared: MonMar 17, 2016 01:22 by Interface Page 8 of 13 pMD [facility] EMERGENCY RECORD EYES: Eye exam included findings of eyelids normal to inspection, Pupils equally round and reactive to light, Extraocular muscles intact, Conjunctiva normal, Sclera normal, Eye exam included findings of anterior chamber clear. ENT: Ear exam normal, external ear normal, tympanic membranes normal, no foreign body, no drainage, no bleeding, hearing normal, Nose exam normal, no nasal deformity, no bleeding from nares, no bleeding from hypopharynx, no foreign body visualized, no septal hematoma, no septal necrosis, No turbinate mucosa discharge, Pharynx exam normal, not injected, no swelling, symmetrical, Uvula exam normal, midline, no edema, Tonsil exam normal, not enlarged, no exudates, Mouth exam normal, mucous membranes moist, no drooling, no lesions, no lacerations, no tongue elevation, teeth normal. NECK: Neck exam included findings of normal range of motion, Trachea midline, Thyroid normal, no meningeal signs, no jugular venous distention, no cervical adenopathy, no tenderness, no contusions, no ecchymosis, No HJR. RESPIRATORY CHEST: Respiratory exam included findings of no respiratory distress, Breath sounds with rare crackles in bilat bases but marked crackles over right middle lobe, No rhonchi, Breath sounds mildly diffusely diminished, Chest exam included findings of chest movement symmetrical. CARDIOVASCULAR: Cardiovascular exam included findings of heart rate regular rate and rhythm, Heart sounds with normal s1 and s2 but occasionally has a midsystolic click., she has a 2-3/6 late systolic Murmur best heard in the aortic area. I do not hear this in the mitral area. ABDOMEN FEMALE: Abdominal exam included findings of abdomen nontender, Bowel sounds normal, Liver normal, Spleen normal, no distension, no pulsatile masses, no peritoneal signs, no ventral hernia. BACK: Back exam normal. UPPER EXTREMITY: Upper extremity exam normal, Upper extremity exam included findings of inspection normal, no abrasions, no contusions, no deformity, no lacerations, Range of motion normal, Motor strength normal, Sensation intact, Brachial pulse normal, Radial pulse normal. LOWER EXTREMITY: Lower extremity exam normal, Lower extremity exam included findings of inspection normal, no abrasions, no contusions, no deformity, no lacerations, Range of motion normal, Motor strength normal, Sensation intact, Pedal pulse normal, Lupe's negative, no edema, no calf tenderness. NEURO: Neuro exam findings include patient oriented to person, place and time, Speech normal, Gait normal, Dexter coma scale 15, Memory normal, Cranial nerves intact, Deep tendon reflexes normal, no focal motor deficits, no focal sensory deficits. SKIN: Skin exam included findings of skin warm, dry, and normal in color, no rash. LYMPHATIC: Lymphatic exam normal, Lymphatic exam included findings of cervical nodes normal. &a-1R&a+25V*p+0X*n7649L*c202B*c15G*c2P*p-0X&a-25V&a+1R Name: Marlene Lim : 1940 F75 MedRec: [id number] AcctNum: [id number] Prepared: MonMar 17, 2016 01:22 by Interface Page 9 of 13 pMD [facility] EMERGENCY RECORD PSYCHIATRIC: Psychiatric exam included findings of patient oriented to person place and time, Normal affect, Judgment normal, Insight normal, Remote memory normal, Recent memory normal, Concentration normal, No suicidal ideations, No homicidal ideations. LAB INTERPRETATION (16:51 DHAM) INTERPRETATION: I reviewed the lab results, CBC normal, Chemistry normal, Cardiac enzymes normal, D-dimer, elevated, bnp is elevated. EVENTS TRANSFER: Triage to Emergency Emergency Room -. (MonMar 16, 2016 14:32 LGIB) Removed from Emergency Emergency Room -. (17:26 LGIB) RADIOLOGYINTERPRETATION (15:08 DHAM) CHEST: Films of the chest show, lobar infiltrate, patchy infiltrate, to the right lower lobe, no pneumothorax, no hemothorax, no pleural effusion, no atelectasis, no cardiomegaly, no chronic obstructive pulmonary disease, normal mediastinum, no congestive heart failure. EKG INTERPRETATION (15:06 DHAM) 12 LEAD EKG INTERPRETATION: 12 lead EKG interpreted by Emergency Department Physician at time of study, 12 lead EKG shows normal sinus rhythm, Rate (beats per minute): 62, with no ectopics, Interpretation: normal EKG, Conduction normal, ST segments normal, T waves normal, [place] normal, Clinical impression: Normal EKG. O2SAT INTERPRETATION (15:09 DHAM) O2SAT: Single pulse oximetry, Oxygen saturation 95%, on room air, Oxygen saturation interpretation: Normal, No intervention required. DOCTOR NOTES TEXT: Pt had no improvement with her shortness of breath with the Duoneb. (16:55 DHAM) IV has infiltrated with the contrast in the right anticubital fossa. I have discussed the ct chest with Dr. Castle who agrees that she has infiltrate in the right base that is either an early pneumonia or atelectasis. Dr. Castle states that we should not repeat the contrasted ct chest at this time and maybe a VQ would be more reasonable. With pt's CAD, COPD, cxr findings, heart murmur, elevated BNP and d dimer, I will start some IVABX and Lovenox and transfer her to [facility]. I have drawn BC and lactic acid and started zosyn. I have discussed this with the pt and her good friend in detail and answered questions. They are in agreement. (16:46 DHAM) Pt discussed with Dr. Allen at 1710 at [facility] who accepts the pt in transfer via EMS. Pt appears stable for transfer. (17:07 DHAM) PROBLEM LIST &a-1R&a+25V*p+0X*r3619U*c202B*c15G*c2P*p-0X&a-25V&a+1R Name: Marlene Lim : 1940 F75 MedRec: [id number] AcctNum: [id number] Prepared: Chio Mar 17, 2016 01:22 by Interface Page 10 of 13 pMD [facility] EMERGENCY RECORD No recorded problems DIAGNOSIS (16:54 DHAM) FINAL: PRIMARY: right lower lobe pneumonia, ADDITIONAL: elevated bnp, elevated d dimer, systolic heart murmur. DISPOSITION PATIENT: Disposition Type: Transfer, Disposition: Transfer to [facility]. (16:54 DHAM) Patient left the department. (17:26 LGIB) PRESCRIPTION No recorded prescriptions IMAGING *EKG: Image captured from scanner. (15:50 LSMI) *MEMORANDUM OF TRANSFER: Image captured from scanner. (17:12 LSMI) PHYSICIAN CERTIFICATION STATEMENT: Image captured from scanner. (17:12 LSMI) CONSENTS: Image captured from scanner. (17:12 LSMI) FACESHEET: Image captured from scanner. (17:12 LSMI) *SUPPLY CHARGE SHEET: Image captured from scanner. (17:22 LGIB) ADMIN (MonMar 17, 2016 01:20 [facility]) DIGITAL SIGNATURE: MD Luna Darren. RESULTS LABORATORY: CBC with Differential Collection DT: MonMar 16, 2016 14:59, White Blood Cell (WBC) Count 8.8 thou/uL, Range (4.8-10.8), *Red Blood Cell (RBC) Count 4.00 - L mill/uL, Range (4.20-5.40), *Hemoglobin 11.6 - L g/dL, Range (12.0-16.0), *Hematocrit 35.0 - L %, Range (36.0-47.0), Mean Corpuscular Volume 87.6 fl, Range (81.0-99.0), Mean Corpuscular Hemoglobin 29.0 pg, Range (27.0-31.0), Mean Corpuscular HGB CONC 33.1 g/dL, Range (32.0-36.0), RBC Distribution Width 13.5 %, Range (11.5-14.5), Platelet Count 292 thou/uL, Range (130-400), *Mean Platelet Volume 6.5 - L fL, Range (7.4-10.4), %Neutrophils 70.2 %, Range (42.0-75.0), *%Lymphocytes 19.5 - L %, Range (21.0-51.0), %Monocytes 6.8 %, Range (0.0-10.0), %Eosinophils 2.4 %, Range (0.0-10.0), *%Basophils 1.1 - H %, Range (0.0-1.0), #Neutrophils 6.2 thou/uL, Range (1.40-6.50), #Lymphocytes 1.7 thou/uL, Range (1.20-3.40), *#Monocytes 0.6 - H thou/uL, Range (0.11-0.59), #Eosinphils 0.2 thou/uL, Range (0.0-0.7), &a-1R&a+25V*p+0X*s1953R*c202B*c15G*c2P*p-0X&a-25V&a+1R Name: Marlene Lim : 1940 F75 MedRec: [id number] AcctNum: [id number] Prepared: Chio Mar 17, 2016 01:22 by Interface Page 11 of 13 pMD [facility] EMERGENCY RECORD #Basophils 0.1 thou/uL, Range (0.0-0.2). (15:09 DHAM) D-Dimer (Quantitative) Collection DT: MonMar 16, 2016 14:59, *D-Dimer Test 0.50 - H *mcg/mL, Range (0.27-0.43), * Reference Range Units: mcg/mL of fibrinogen equivalent, units(FEU) Based upon a retrospective study of [facility] patients in June 2005, a result of Less than 0.44 mcg/mL FEU is, predictive of the absence of a DVT or PE. . (15:21 DHAM) B type Natriuretic Peptide Collection DT: MonMar 16, 2016 14:59, *B type Natriuretic Peptide 166.5 - H pg/mL, Range (0-100). (15:41 DHAM) Cardiac Profile w/CKMB & TropI Collection DT: MonMar 16, 2016 14:59, CKMB 0.6 ng/mL, Range (0-6.6), Troponin I Less than 0.010 ng/mL, Range (< 0.028), Reference Range , 0.00 - 0.028 ng/mL Negative 0.029 - 0.29 ng/mL , Indeterminate Greater or Equal to 0.3 ng/mL Strongly suggests NV , . (15:41 DHAM) Comprehensive Metabolic Panel Collection DT: MonMar 16, 2016 14:59, Sodium 142 mmol/L, Range (136-145), Potassium 4.0 mmol/L, Range (3.5-5.1), *Chloride 108 - H mmol/L, Range (98-107), Carbon Dioxide 25 mmol/L, Range (23-31), Anion Gap 13 mmol/L, Range (10-20), BUN (Urea Nitrogen) 14 mg/dL, Range (9.8-20.1), Creatinine 0.72 mg/dL, Range (0.6-1.1), Estimated GFR-MDRD 79 , Reference Range for Estimated GFR: Greater than 90, mL/min/1.73 m2 NOTE: The MDRD equation has not been validated for use, with the elderly (over 70 years of age), women, patients with, serious comorbid condition or persons with extremes of body size, muscle, mass, or nutritional status. , Glucose 104 mg/dL, Range (83-110), Calcium 9.2 mg/dL, Range (7.8-10.44), Bilirubin, Total 0.5 mg/dL, Range (0.2-1.2), Protein, Total 6.8 g/dL, Range (5.8-8.1), NOTE: Plasma values are generally 0.3 to 0.5 g/dL higher than serum values, due to the presence of fibrinogen. , Albumin 3.8 g/dL, Range (3.4-4.8), Globulin 3.0 g/dL, Range (2.4-3.5), Alb/Glob Ratio 1.3 g/dL, Range (1.2-2.2), Alkaline Phosphatase 72 U/L, Range (40-150), AST (SGOT) 14 U/L, Range (5-34), ALT (SGPT) 11 U/L, Range (0-55). (15:41 JOLLY) &a-1R&a+25V*p+0X*u3591C*c202B*c15G*c2P*p-0X&a-25V&a+1R Name: Marlene Lim : 1940 F75 MedRec: [id number] AcctNum: [id number] Prepared: MonMar 17, 2016 01:22 by Interface Page 12 of 13 pMD [facility] EMERGENCY RECORD Benjamin: PARVIN=MD Cheryl, Jules LGIB=NORMAN Rebolledo, Vidhi LSMI=MIGUEL Flores Leah &a-1R&a+25V*p+0X*q7437M*c202B*c15G*c2P*p-0X&a-25V&a+1R Name: Marlene Lim : 1940 F75 MedRec: [id number] AcctNum: [id number] Prepared: Chio Mar 17, 2016 01:22 by Interface Page 13 of 13 pMD MTDD
== END 2016-03-16 17:28 | disposition short-term general hospital (02) ==
LOC: BURERS 14:24
DX: J18.1 Lobar pneumonia, unspecified organism (principal); J44.9 Chronic obstructive pulmonary disease, unspecified; I25.2 Old myocardial infarction; I10 Essential (primary) hypertension; R79.89 Other specified abnormal findings of blood chemistry; R79.1 Abnormal coagulation profile; R01.1 Cardiac murmur, unspecified; Z79.899 Other long term (current) drug therapy; Z87.891 Personal history of nicotine dependence
CPT/HCPCS: 36415; 71020; 71275; 80053; 82553; 83605; 83880; 84484; 85025; 85379; 87040; 93005; 94640; 94760; 96365; 96372; J1650; J2543; J7050; J7620

== ENCOUNTER 2019-07-26 21:20 | Emergency (ER) | payer MEDICARE ==
--- NOTE | 2019-07-27 07:33 | CT ---
CT OF THE BRAIN WITHOUT CONTRAST: DATE: 07/26/2019. FINDINGS: A noncontrast CT shows normal-sized ventricles for age and atrophy. There is profound deep white mat ter lucency bilaterally consistent with chronic microvascular ischemia. No intracranial bleeding was seen. No acute stroke was evident, though small ones would be easily missed against the ischemic ba ckground. No mass or edema was present. The skull is normal in appearance. The visible paranasal s inuses and mastoid air cells are clear. IMPRESSION: Profound chronic ischemic changes and atrophy. No acute intracranial findings. Preliminary report called to Dr. Alvarez at 2158 on 07/26/2019. CODE CR POS: HOME
== END 2019-07-26 22:28 | disposition home or self-care (01) ==
LOC: BURERS 21:20
DX: I10 Essential (primary) hypertension (principal); I25.2 Old myocardial infarction; J44.9 Chronic obstructive pulmonary disease, unspecified; Z79.899 Other long term (current) drug therapy; Z79.82 Long term (current) use of aspirin; Z87.891 Personal history of nicotine dependence
CPT/HCPCS: 70450; 93005

== ENCOUNTER 2021-05-27 13:45 | Outpatient (CLI) | payer MEDICARE | END 2021-05-27 13:46 | disposition home or self-care (01) | LOC: BURRAD 13:45 | PROVIDERS: ATTEND Registered Nurse Community Health | DX: M25.511 Pain in right shoulder (principal); M19.011 Primary osteoarthritis, right shoulder ==

== ENCOUNTER 2021-11-08 15:06 | Emergency (ER) | payer OTHER ==
[2021-11-08] MEDS ORDERED: predniSONE 20 MG TAB ONE (15:42)
== END 2021-11-08 16:31 | disposition home or self-care (01) ==
LOC: BURERS 15:06
DX: J44.1 Chronic obstructive pulmonary disease with (acute) exacerbation (principal); I25.2 Old myocardial infarction; I10 Essential (primary) hypertension; Z87.891 Personal history of nicotine dependence
CPT/HCPCS: 71046; 94640; J7512; J7620

== ENCOUNTER 2022-01-01 15:12 | Emergency (ER) | payer OTHER | END 2022-01-01 16:19 | disposition home or self-care (01) | LOC: BURERS 15:12 | DX: R04.2 Hemoptysis (principal); R06.02 Shortness of breath; J44.9 Chronic obstructive pulmonary disease, unspecified; I10 Essential (primary) hypertension; Z87.891 Personal history of nicotine dependence; Z79.899 Other long term (current) drug therapy; Z79.01 Long term (current) use of anticoagulants | CPT/HCPCS: 71046; 93005 ==

== ENCOUNTER 2022-03-21 19:34 | Emergency (ER) | payer OTHER ==
[2022-03-21] MEDS ORDERED: Ondansetron ODT 4 MG TAB ONE (19:53)
== END 2022-03-21 20:45 | disposition home or self-care (01) ==
LOC: BURERS 19:34
DX: B34.9 Viral infection, unspecified (principal); I25.2 Old myocardial infarction; I48.91 Unspecified atrial fibrillation; E03.9 Hypothyroidism, unspecified; E78.5 Hyperlipidemia, unspecified; I10 Essential (primary) hypertension; J44.9 Chronic obstructive pulmonary disease, unspecified; Z87.891 Personal history of nicotine dependence; Z79.899 Other long term (current) drug therapy
CPT/HCPCS: 87804; 99284; Q0162

== ENCOUNTER 2022-04-18 15:35 | Emergency (ER) | payer OTHER ==
[2022-04-18] MEDS ORDERED: Meclizine HCl 25 MG TAB ONE (16:03)
[2022-04-18 16:15] LABS: #Basophils 0.1 thou/uL (0.0-0.2); #Eosinphils 0.1 thou/uL (0.0-0.7); #Lymphocytes 1.3 thou/uL (1.20-3.40); #Monocytes 0.7 thou/uL (0.11-0.59); #Neutrophils 6.8 thou/uL (1.40-6.50); %Basophils 0.7 % (0.0-1.0); %Eosinophils 1.5 % (0.0-10.0); %Lymphocytes 14.7 % (21.0-51.0); %Monocytes 8.2 % (0.0-10.0); Hemoglobin 11.4 g/dL (12.0-16.0); Mean Corpuscular HGB CONC 35.1 g/dL (32.0-36.0); Mean Corpuscular Hemoglobin 30.5 pg (27.0-31.0); Mean Corpuscular Volume 86.9 fl (78.0-98.0); Platelet Count 254 10x3/uL (130-400); Red Blood Cell (RBC) Count 3.76 mill/uL (4.20-5.40)
[2022-04-18 16:31] LABS: ALT (SGPT) 20 U/L (8-55); AST (SGOT) 18 U/L (5-34); Alkaline Phosphatase 75 U/L (40-110); Anion Gap 16 mmol/L (10-20); BUN (Urea Nitrogen) 19 mg/dL (9.8-20.1); Bilirubin, Total 0.7 mg/dL (0.2-1.2); Calc. Creatinine Clearance 0 mL/min (70-130); Calcium 9.5 mg/dL (7.8-10.44); Carbon Dioxide 24 mmol/L (23-31); Chloride 107 mmol/L (98-107); Estimated GFR 65; Globulin 3.2 g/dL (2.4-3.5); Glucose 117 mg/dL (83-110); Potassium 3.7 mmol/L (3.5-5.1); Protein, Total 7.2 g/dL (5.8-8.1); Sodium 143 mmol/L (136-145)
== END 2022-04-18 17:31 | disposition home or self-care (01) ==
LOC: BURERS 15:35
DX: H83.02 Labyrinthitis, left ear (principal); I25.2 Old myocardial infarction; I48.91 Unspecified atrial fibrillation; E03.9 Hypothyroidism, unspecified; E78.5 Hyperlipidemia, unspecified; I10 Essential (primary) hypertension; J44.9 Chronic obstructive pulmonary disease, unspecified; Z87.891 Personal history of nicotine dependence; Z79.899 Other long term (current) drug therapy
CPT/HCPCS: 70450; 71045; 80053; 84484; 85025; 93005; 94760